=== PATIENT | male | born 1955 | race Caucasian/White ===

== ENCOUNTER 2020-07-26 17:39 | Day surgery (SDCO) | payer MEDICARE ==
[~2020-07-26 17:39] MED LIST: BENICAR *OUT OF20 MG PO; CYMBALTA60 MG PO; DULOXETINE HCL20 MG PO; IRON18 MG PO; LIPITOR20 MG PO; MELOXICAM15 MG PO; PERCOCET 10/321 EACH PO; PRILOSEC20 MG PO
[2020-07-26 18:26] LABS: BASOPHIL 0.7 % (0-2); EOSINOPHIL 2.8 % (0-7); HCT 51.4 % (42.0-52.0); HGB 17.1 g/dl (13.2-18.0); LYMPHOCYTE 29.8 % (15-48); MCH 29.8 pg (25.0-31.0); MCHC 33.3 g/dL (32.0-36.0); MCV 89.5 fL (78.0-100.0); MONOCYTE 7.3 % (0-12); MPV 8.7 fL (6.0-9.5); NEUTROPHIL 58.8 % (41-80); NRBC 0; PLT 341 K/uL (150-400); RBC 5.74 M/uL (4.70-6.00); RDW 13.2 % (11.5-14.0); WBC 10.6 K/uL (4.0-10.5)
[2020-07-26 18:30] LABS: INR 1.09 (0.9-1.2); PROTHROMBIN TIME 13.4 SECONDS (11.4-13.6); PTT 29.2 SECONDS (22.2-34.7)
[2020-07-26 18:32] LABS: ALBUMIN 3.7 g/dL (3.4-5.0); BILIRUBIN - TOTAL 0.7 mg/dL (0.2-1.0); BUN/CREAT RATIO (CALC) 11.1 RATIO; CREATININE 0.9 mg/dL (0.67-1.17); MAGNESIUM 2.1 mg/dL (1.8-2.4); POTASSIUM 3.9 mmol/L (3.5-5.1); TOTAL PROTEIN 7.7 g/dL (6.4-8.2)
[2020-07-26 18:56] LABS: CKMB 1.3 ng/mL (0.0-3.6); PRO-BNP 45 pg/mL (<125)
[2020-07-26 19:29] LABS: BILIRUBIN NEGATIVE (NEGATIVE); BLOOD TRACE-LYSED Ery/uL (NEGATIVE); CLARITY CLEAR (CLEAR); COLOR YELLOW (YELLOW); GLUCOSE (U) NORMAL (NORMAL); LEUKOCYTES NEGATIVE Leu/uL (NEGATIVE); NITRITE NEGATIVE (NEGATIVE); PROTEIN NEGATIVE (NEGATIVE); SPECIFIC GRAVITY >=1.030 (1.001-1.030); UROBILINOGEN 0.2 mg/dL (0.2-1.0); pH 5.5 (5.0-9.0)
[2020-07-26 19:46] LABS: BACTERIA TRACE; SQUAMOUS EPITHELIAL CELLS RARE; URINARY RBC RARE
[2020-07-26] MEDS ORDERED: NORCO 5-325 TA1 EACH PO (20:45)
[2020-07-27 05:39] LABS: BASOPHIL 0.8 % (0-2); EOSINOPHIL 3.1 % (0-7); HCT 47.7 % (42.0-52.0); HGB 15.7 g/dl (13.2-18.0); LYMPHOCYTE 31.6 % (15-48); MCH 29.4 pg (25.0-31.0); MCHC 32.9 g/dL (32.0-36.0); MCV 89.3 fL (78.0-100.0); MONOCYTE 8.3 % (0-12); MPV 8.6 fL (6.0-9.5); NEUTROPHIL 55.7 % (41-80); NRBC 0; PLT 320 K/uL (150-400); RBC 5.34 M/uL (4.70-6.00); RDW 13.2 % (11.5-14.0); WBC 9.9 K/uL (4.0-10.5)
[2020-07-27 05:59] LABS: BUN/CREAT RATIO (CALC) 14.6 RATIO; CREATININE 0.82 mg/dL (0.67-1.17); POTASSIUM 3.8 mmol/L (3.5-5.1)
--- NOTE | 2020-07-27 13:25 | NUR ---
REPORTS HE LIVES WITH SON JOSE IS INDEPNEDNT WITH CARE; PLEASE ADVISE OF ANY DISCHARGE NEEDS
[2020-07-27] MEDS ORDERED: TOPROL XL 25MG25 MG PO (14:32)
[2020-07-27] MEDS ORDERED: ASPIRIN EC81 MG PO (14:32)
[2020-07-27] MEDS ORDERED: CRESTOR10 MG PO (14:32)
[2020-11-09] MEDS ORDERED: NEURONTIN100 MG PO (15:55)
[2020-11-09] MEDS ORDERED: MOBIC15 MG PO (15:55)
== END 2020-07-27 15:22 | disposition home or self-care (01) ==
LOC: FER 17:39 → FTCU 19:28
PROVIDERS: Emergency Medicine; Nurse Practitioner; ADMIT Internal Medicine
DX: R07.89 Other chest pain (principal); I16.0 Hypertensive urgency; I25.10 Atherosclerotic heart disease of native coronary artery without angina pectoris; K21.9 Gastro-esophageal reflux disease without esophagitis; E78.5 Hyperlipidemia, unspecified; M54.5 Low back pain; M19.90 Unspecified osteoarthritis, unspecified site; G89.4 Chronic pain syndrome; N40.0 Benign prostatic hyperplasia without lower urinary tract symptoms; F17.210 Nicotine dependence, cigarettes, uncomplicated; R11.0 Nausea; R55 Syncope and collapse; R42 Dizziness and giddiness; Z98.890 Other specified postprocedural states; Z96.643 Presence of artificial hip joint, bilateral; Z90.49 Acquired absence of other specified parts of digestive tract; Z80.1 Family history of malignant neoplasm of trachea, bronchus and lung; Z95.5 Presence of coronary angioplasty implant and graft; Z20.822 Contact with and (suspected) exposure to COVID-19
CPT/HCPCS: 36415; 70450; 71045; 80048; 80053; 80061; 81001; 82553; 83735; 83874; 83880; 84484; 85025; 85610; 85730; 93005; G0378; U0002

== ENCOUNTER 2020-11-25 03:58 | Emergency (ER) | payer MEDICARE ==
[~2020-11-25 03:58] MED LIST changes: +ASPIRIN EC81 MG PO; +CRESTOR10 MG PO; +MOBIC15 MG PO; +NEURONTIN100 MG PO; +NORCO 5-325 TA1 EACH PO; +TOPROL XL 25MG25 MG PO
[2020-11-25 04:36] LABS: BASOPHIL 0.9 % (0-2); EOSINOPHIL 3.2 % (0-7); HCT 48.2 % (42.0-52.0); HGB 16.1 g/dl (13.2-18.0); LYMPHOCYTE 22.7 % (15-48); MCH 30.1 pg (25.0-31.0); MCHC 33.4 g/dL (32.0-36.0); MCV 90.1 fL (78.0-100.0); MONOCYTE 7.9 % (0-12); NEUTROPHIL 64.9 % (41-80); NRBC 0; PLT 277 K/uL (150-400); RBC 5.35 M/uL (4.70-6.00); RDW 13.4 % (11.5-14.0); WBC 11.7 K/uL (4.0-10.5)
[2020-11-25 04:45] LABS: ALBUMIN 3.5 g/dL (3.4-5.0); BILIRUBIN - TOTAL 0.3 mg/dL (0.2-1.0); BUN/CREAT RATIO (CALC) 12.5 RATIO; CREATININE 1.04 mg/dL (0.67-1.17); GLOBULIN (CALCULATION) 3.8 g/dL; POTASSIUM 3.8 mmol/L (3.5-5.1); TOTAL PROTEIN 7.3 g/dL (6.4-8.2)
[2020-11-25 06:45] LABS: BILIRUBIN 1+ mg/dL (NEGATIVE); BLOOD 3+ Ery/uL (NEGATIVE); COLOR YELLOW (YELLOW); GLUCOSE (U) NORMAL (NORMAL); LEUKOCYTES NEGATIVE Leu/uL (NEGATIVE); NITRITE NEGATIVE (NEGATIVE); PROTEIN 1+ mg/dL (NEGATIVE); SPECIFIC GRAVITY >=1.030 (1.001-1.030); UROBILINOGEN 0.2 mg/dL (0.2-1.0); pH 5.5 (5.0-9.0)
[2020-11-25 06:51] LABS: CLARITY HAZY (CLEAR)
[2020-11-25 06:54] LABS: URINARY RBC TNTC
[2020-11-25 06:56] LABS: BACTERIA TRACE
[2020-11-25 06:57] LABS: MUCOUS MODERATE
[2020-11-25] MEDS ORDERED: FLOMAX 0.4 MG0.4 MG PO (07:25)
[2020-11-25] MEDS ORDERED: ONDANSETRON ODT4 MG SL (07:25)
[2020-11-25] MEDS ORDERED: PERCOCET 5-3251 EACH PO (07:25)
[2020-11-25] MEDS ORDERED: MOBIC15 MG PO (07:25)
[2021-01-12] MEDS ORDERED: GABAPENTIN100 MG PO (09:57)
== END 2020-11-25 09:10 | disposition home or self-care (01) ==
LOC: FER 03:58
PROVIDERS: Emergency Medicine Emergency Medical Services
DX: N13.2 Hydronephrosis with renal and ureteral calculous obstruction (principal); I10 Essential (primary) hypertension; E78.5 Hyperlipidemia, unspecified; F17.210 Nicotine dependence, cigarettes, uncomplicated
CPT/HCPCS: 36415; 80053; 81001; 85025; J1170; J1885; J2405; J7030